=== PATIENT | male | born 1935 | race Caucasian/White ===

== ENCOUNTER 2017-07-30 10:53 | Day surgery (SDC) | payer MEDICARE ==
--- NOTE | 2017-07-30 08:01 | HP ---
DATE OF SURGERY: 07/30/2017 HISTORY OF PRESENT ILLNESS: The patient is an 82 year-old with history of polyps in the past. No blood in the stools. No change in bowel movements. No pain currently. He also has some history of dysphasia and polyps in the past. He had sigmoid polyp back in 2003. He is in need of follow up colonoscopy at this time. PAST MEDICAL HISTORY: Hypertension, hypercholesterolemia. PAST SURGICAL HISTORY: Back surgery in the past. Endoscopy in the past. MEDICATIONS: He takes some blood pressure medication and cholesterol pill the names of which he did not know at this time. ALLERGIES: NKDA. FAMILY HISTORY: Negative for colon cancer. SOCIAL HISTORY: No alcohol abuse. REVIEW OF SYSTEMS: Twelve systems reviewed per admission assessment. No chest pain or palpitations other systems negative or noncontributory as above and per preadmission questionnaire. PHYSICAL EXAMINATION: GENERAL: No acute distress. HEENT: Sclerae nonicteric. NECK: No JVD. CHEST: Equal excursion, nonlabored breathing. CVS: Regular rate and rhythm. ABDOMEN: Soft. No peritoneal signs. EXTREMITIES: No significant edema. NEURO: Alert, oriented, moving extremities symmetrically. No gross motor deficits noted. RECTAL: Deferred timed to endoscopy exam. 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 Risks and benefits explained in detail including but not limited to bleeding or infection, risk of bowel injury or perforation possibly requiring open procedure, small risk of missed or nondiagnosis or incomplete exam possibly requiring barium enema, other studies or procedures, general risk of anesthesia or sedation, risk of bowel prep, postoperative risk of nausea or cramping but not limited to. He understands and agrees to the planned procedure and will proceed with outpatient follow up colonoscopy.
[~2017-07-30 10:53] MED LIST: Lactated Ringers 1,000 ML IV SCH
[2017-07-30] MEDS ORDERED: VERSED 5 MG/5 ML IV ONE (10:54)
[2017-07-30] MEDS ORDERED: DEMEROL 50 MG IV ONE ×2 (10:54)
[2017-07-30] MEDS ORDERED: Zofran 4 MG/2 ML VIAL IV ONE (10:54)
[2017-07-30 14:33] VITALS: O2SAT 95
[2017-07-30 15:22] VITALS: BP 107/59; PULSE 66
--- NOTE | 2017-07-31 09:57 | OP ---
SURGERY DATE/TIME: 07/30/2017 6482 PREOPERATIVE DIAGNOSIS: History of polyps one with high grade dysplasia in the past, need for follow up screening colonoscopy. POSTOPERATIVE DIAGNOSES: 1) Very small early polyp versus raised lesion or hyperplastic lesion sigmoid colon. 2) Very tiny, vague raised lesion versus hyperplasia of mucosa ascending colon. 3) Diverticulosis. 4) Small internal and external hemorrhoids. 5) Somewhat poor right colon prep limiting right colon exam. PROCEDURES: 1) Colonoscopy to cecum with hot biopsy removal of raised lesion versus early polyp versus hyperplastic lesion sigmoid colon. 2) Hot biopsy removal of very tiny, raised lesion versus hyperplasia of mucosa on ascending colon. SURGEON: Dr. Gold Kilgore. ANESTHESIA: IV sedation IV Demerol 75 mg and Versed 3 mg. ESTIMATED BLOOD LOSS: Minimal. INDICATIONS: As noted above. Risks and benefits explained in detail but not limited to and consent obtained. DESCRIPTION OF PROCEDURE AND FINDINGS: The patient is taken to the endoscopy room on continuous pulse oximetry and blood pressure monitoring. After official time out and no disagreement with planned procedure, he is incrementally sedated with IV Demerol and Versed. Digital rectal exam did not reveal any rectal masses. He did have some small internal and external hemorrhoids. Video colonoscope inserted and passed up through the tortuous sigmoid, descending and transverse colon. With external pressure the scope was able to be passed down the ascending colon to the cecum. Appendiceal orifice and valve well visualized. The left colon prep had been fair to good. The right colon was limited and poor with liquidy semi-solid stool very much limiting the exam and this was suction irrigated as well as possible but did limit the exam for very small lesions. The scope was slowly and carefully withdrawn. There were no signs of any large polyps, masses or obstructed lesions. The very tiny little raised area of early hyperplastic lesion versus hyperplasia mucosa versus early true polyp was removed with hot biopsy forceps with brief bursts of cautery in the ascending colon. The scope is slowly and carefully withdrawn through the colon over the next 12 minutes or so. There was some diverticulosis in the left colon. In the sigmoid colon he had a small raised lesion versus early polyp or hyperplastic lesion that was removed with hot biopsy forceps with brief bursts of cautery. Good hemostasis noted. In a different area of the sigmoid colon where the prior large polyp with some dysplasia tattoo marking the site showing no evidence of any recurrent issues, nice flat and smooth unremarkable mucosa in that area. The scope pulled back and had small internal and external hemorrhoids. Otherwise no signs of any large polyps, masses or obstructing lesions. Findings discussed with the family out in the waiting area. I will see him back in the office next week.
== END 2017-07-30 15:10 | disposition home or self-care (01) ==
LOC: SDC 10:53
PROVIDERS: ATTEND Surgery
PROC: 0DBK8ZX Excision of Ascending Colon, Via Natural or Artificial Opening Endoscopic, Diagnostic (ICD-10-PCS; principal; 2017-07-30)
PROC: 0DBN8ZX Excision of Sigmoid Colon, Via Natural or Artificial Opening Endoscopic, Diagnostic (ICD-10-PCS; 2017-07-30)
DX: K63.5 Polyp of colon (principal); K63.9 Disease of intestine, unspecified; Z12.11 Encounter for screening for malignant neoplasm of colon; Z86.010 Personal history of colon polyps; K57.90 Diverticulosis of intestine, part unspecified, without perforation or abscess without bleeding; K64.4 Residual hemorrhoidal skin tags; K64.8 Other hemorrhoids; I10 Essential (primary) hypertension; E78.00 Pure hypercholesterolemia, unspecified; Z79.899 Other long term (current) drug therapy
CPT/HCPCS: 88305; 88312; J2175; J2250; J2405